=== PATIENT | male | born 1965 | race Caucasian/White ===

== ENCOUNTER 2018-04-18 19:11 | Emergency (ER) | payer MEDICAID ==
[~2018-04-18] VITALS: Ht 170.2 cm; Wt 69.8 kg
[2018-04-18 19:24] VITALS: Ht 170.2 cm; Wt 69.8 kg
[2018-04-18 23:05] VITALS: BP 154/109
== END 2018-04-18 23:05 | disposition home or self-care (01) ==
LOC: ED 19:11
DX: R68.84 Jaw pain (principal)

== ENCOUNTER 2018-06-03 21:37 | Emergency (ER) | payer MEDICAID ==
[~2018-06-03] VITALS: Ht 172.7 cm; Wt 70.8 kg
[2018-06-03 21:57] VITALS: Ht 172.7 cm; Wt 70.8 kg
[2018-06-03 22:47] VITALS: BP 139/90
== END 2018-06-03 22:47 | disposition home or self-care (01) ==
LOC: ED 21:37
DX: K08.89 Other specified disorders of teeth and supporting structures (principal)

== ENCOUNTER 2018-11-23 02:49 | Emergency (ER) | payer MEDICAID ==
[~2018-11-23] VITALS: Ht 172.7 cm; Wt 68.0 kg
[2018-11-23 02:57] VITALS: Ht 172.7 cm; Wt 68.0 kg
[2018-11-23 04:43] VITALS: BP 140/76
== END 2018-11-23 04:43 | disposition home or self-care (01) ==
LOC: ED 02:49
DX: S67.191A Crushing injury of left index finger, initial encounter (principal); W22.8XXA Striking against or struck by other objects, initial encounter; Y93.89 Activity, other specified; Y92.89 Other specified places as the place of occurrence of the external cause; Y99.8 Other external cause status
CPT/HCPCS: J2001; Q0092

== ENCOUNTER 2019-04-14 15:36 | Emergency (ER) | payer MEDICAID ==
[~2019-04-14] VITALS: Ht 170.2 cm; Wt 67.6 kg
[2019-04-14 15:43] VITALS: BP 124/87; Ht 170.2 cm; Wt 67.6 kg
== END 2019-04-14 16:22 | disposition home or self-care (01) ==
LOC: ED 15:36
DX: M54.42 Lumbago with sciatica, left side (principal); F17.210 Nicotine dependence, cigarettes, uncomplicated; Z71.6 Tobacco abuse counseling
CPT/HCPCS: 99406

== ENCOUNTER 2019-04-29 03:42 | Emergency (ER) | payer MEDICAID ==
[~2019-04-29] VITALS: Ht 172.7 cm; Wt 66.0 kg
[2019-04-29 03:47] VITALS: Ht 172.7 cm; Wt 66.0 kg
[2019-04-29 07:57] VITALS: BP 135/88
== END 2019-04-29 07:57 | disposition home or self-care (01) ==
LOC: ED 03:42
DX: M54.5 Low back pain (principal); F17.200 Nicotine dependence, unspecified, uncomplicated
CPT/HCPCS: J1885; J2270

== ENCOUNTER 2020-06-24 11:28 | Emergency (ER) | payer OTHER ==
[~2020-06-24] VITALS: Ht 162.6 cm; Wt 61.2 kg
[2020-06-24 11:32] VITALS: Ht 162.6 cm; Wt 61.2 kg
[2020-06-24 15:27] VITALS: BP 158/99
== END 2020-06-24 15:35 | disposition home or self-care (01) ==
LOC: ED 11:28
DX: F10.129 Alcohol abuse with intoxication, unspecified (principal); W18.30XA Fall on same level, unspecified, initial encounter; Y93.89 Activity, other specified; Y92.89 Other specified places as the place of occurrence of the external cause; Y99.8 Other external cause status
CPT/HCPCS: 99406